=== PATIENT | male | born 1970 | race Caucasian/White ===

== ENCOUNTER → 2024-06-29 | Outpatient (CLI) | payer OTHER ==
[2024-06-29 18:23] LABS: Basophils # (A) 0.05 X 10*3/uL (0.00-0.10); Eosinophils # (A) 0.18 X 10*3/uL (0.04-0.35); Eosinophils % (A) 3.5 %; HCT 47.8 % (39.6-50.0); HGB 16.1 g/dL (13.0-17.0); Lymphocytes % (A) 21.3 %; MCH 30.9 pg (27.0-32.0); MCHC 33.7 g/dL (32.0-37.0); MCV 91.7 FL (80.0-97.0); Mean Platelet Volume 9.2 FL (9.5-12.2); Monocytes # (A) 0.34 X 10*3/uL (0.20-1.00); Monocytes % (A) 6.6 %; NRBC Per 100 WBC 0 X 10*3/uL (0.00-0.01); Neutrophils # (A) 3.46 X 10*3/uL (1.80-7.70); Neutrophils % (A) 66.8 %; Platelet Count 271 X 10*3/uL (140-440); RBC 5.21 X 10*6/uL (4.40-5.60); RDW 12.9 % (11.5-14.5); WBC 5.17 X 10*3/uL (4.50-10.00)
[2024-06-29 18:37] LABS: T4, Free (Free Thyroxine) 1.31 ng/dL (0.80-1.80)
== END | disposition home or self-care (01) ==
LOC: LABWHC1 10:42
PROVIDERS: ATTEND Family Medicine
DX: Z13.29 Encounter for screening for other suspected endocrine disorder (principal); I10 Essential (primary) hypertension; E78.5 Hyperlipidemia, unspecified; E03.9 Hypothyroidism, unspecified; Z79.899 Other long term (current) drug therapy
CPT/HCPCS: 36415; 84402; 84403; 84439; 84443; 85025